=== PATIENT | female | born 1955 | race Caucasian/White ===

== ENCOUNTER → 2017-01-13 | Outpatient (CLI) | payer BC ==
--- NOTE | 2017-01-14 08:23 | XR ---
EXAMINATION TYPE: XR chest 2V DATE OF EXAM: 01/13/2017 COMPARISON: NONE TECHNIQUE: PA and lateral views submitted. HISTORY: Endometrial cancer FINDINGS: The lungs are clear and there is no pneumothorax, pleural effusion, or focal pneumonia. Hypertrophi c and degenerative change of the spine noted. IMPRESSION: 1. No acute process.
--- NOTE | 2017-01-14 10:10 | CT ---
EXAMINATION TYPE: CT abdomen pelvis w con DATE OF EXAM: 01/13/2017 COMPARISON: 02/02/2016 INDICATION: Follow-up for endometrial cancer. DLP: 709.60 mGycm, Automated exposure control for dose reduction was used. CONTRAST: 100 mL of Omnipaque 300. Study performed with Oral Contrast TECHNIQUE: Axial images were obtained from above the diaphragm to the pubic rami in the axial plane a t 5 mm thick sections. Reconstructed images are reviewed on the computer in the coronal plane. FINDINGS: Limited CT sections are obtained the lung bases. The lung bases are clear. CT ABDOMEN: Liver: Multiple scattered punctate hypodensities are present likely on the basis of small hepatic cys ts. These are too small to reliably classify as simple cysts. Monitoring can be performed. These were present previously. Spleen: Normal Pancreas: Normal Adrenal glands: The adrenal glands are normal. Gallbladder: Decompressed. Kidneys: No masses are evident. No hydronephrosis is present. No cysts are present. Delayed images were obtained through the kidneys, which remain unremarkable. Aorta: Vascular calcification is within the aorta. Inferior vena cava: Normal. CT PELVIS: Loops of bowel within the abdomen and pelvis are normal. There are loops of bowel which are incom pletely distended or lack oral contrast limiting their evaluation. Fecal debris is within the colon. A few diverticular changes are within the sigmoid colon. Appendix: Normal as visualized. Urinary bladder: Normal. Genitourinary structures: Surgically absent. Osseous structures: No suspicious lytic or sclerotic lesions. IMPRESSIONS: 1. No suspicious changes to suggest metastatic disease.
== END | disposition home or self-care (01) ==
LOC: RADCTMAIN 18:30
PROVIDERS: ATTEND Obstetrics & Gynecology
DX: C54.1 Malignant neoplasm of endometrium (principal)
CPT/HCPCS: 71020; 74177; Q9967

== ENCOUNTER → 2017-02-01 | Outpatient (CLI) | payer BC ==
--- NOTE | 2017-02-04 07:16 | MM ---
Reason for exam: screening (asymptomatic). Last mammogram was performed 1 year ago. History: Patient is postmenopausal and has history of endometrial cancer at age 60. Family history of breast cancer in mother at age 80. Physical Findings: A clinical breast exam by your physician is recommended on an annual basis and results should be correlated with mammographic findings. MG Screening Mammo w CAD Bilateral CC and MLO view(s) were taken. Prior study comparison: January 19, 2016, bilateral MG screening mammo w CAD. January 17, 2015, bilateral MG screening mammo w CAD. There are scattered fibroglandular densities. No significant changes when compared with prior studies. ASSESSMENT: Negative, BI-RAD 1 RECOMMENDATION: Routine screening mammogram of both breasts in 1 year.
== END | disposition home or self-care (01) ==
LOC: RADMAMWWP 08:10
PROVIDERS: ATTEND Family Medicine
DX: Z12.31 Encounter for screening mammogram for malignant neoplasm of breast (principal)

== ENCOUNTER → 2017-12-19 | Outpatient (CLI) | payer BC ==
--- NOTE | 2017-12-19 08:54 | XR ---
EXAMINATION TYPE: XR chest 2V DATE OF EXAM: 12/19/2017 COMPARISON: Prior chest 01/13/2017 HISTORY: Malignant neoplasm of endometrium TECHNIQUE: Frontal and lateral views of the chest are obtained. FINDINGS: There is no focal air space opacity, pleural effusion, or pneumothorax seen. The cardiac silhouette size is within normal limits. The osseous structures are intact. IMPRESSION: No acute cardiopulmonary process.
--- NOTE | 2017-12-19 09:17 | CT ---
EXAMINATION TYPE: CT abdomen pelvis w con DATE OF EXAM: 12/19/2017 HISTORY: malignant neoplasm of endometrium recently diagnosed 2014 CT DLP: 1211mGycm Automated Exposure Control for Dose Reduction was Utilized. CONTRAST: CT scan of the abdomen and pelvis is performed with oral and with IV Contrast, patient injected with 100mL of Isovue 300. COMPARISON: CT abdomen and pelvis January 13, [address] studies. FINDINGS: LUNG BASES: No significant abnormality is appreciated. LIVER/GB: Liver is diffusely low dense consistent with fatty infiltration. There is redemonstration o f scattered subcentimeter low dense lesions throughout the liver that are too small to further charac terize but presumed benign. PANCREAS: No significant abnormality is seen. SPLEEN: No significant abnormality is seen. ADRENALS: No significant abnormality is seen. KIDNEYS: No significant abnormality is seen. BOWEL: The oral contrast reaches level of the mid to distal transverse colon. There is no suspicious small or large bowel dilatation. Normal size contrast-filled appendix is seen from base of cecum. Juve e prominence of fecal material near splenic flexure is noted. UTERUS/ADNEXA: Uterus is redemonstrated surgically absent. A few scattered pelvic phleboliths are red emonstrated. LYMPH NODES: No greater than 1cm abdominal or pelvic lymph nodes are appreciated. OSSEOUS STRUCTURES: There is vacuum disc phenomenon with moderate spurring and disc space narrowing L 1-L2 and L2-L3 levels. There is mild to moderate multilevel anterior and lateral spurring throughout the visualized lower thoracic spine. OTHER: No significant additional abnormality is seen. IMPRESSION: No new mass or adenopathy is seen to suggest neoplastic recurrence.
== END | disposition home or self-care (01) ==
LOC: RADCTMAIN 06:26
PROVIDERS: ATTEND Obstetrics & Gynecology
DX: C54.1 Malignant neoplasm of endometrium (principal)
CPT/HCPCS: 71046; 74177; Q9967

== ENCOUNTER → 2018-04-20 | Outpatient (CLI) | payer BC ==
--- NOTE | 2018-04-23 10:37 | MM ---
Reason for exam: screening (asymptomatic). Last mammogram was performed 1 year and 3 months ago. History: Patient is postmenopausal and has history of endometrial cancer at age 60. Family history of breast cancer in mother at age 80. Physical Findings: A clinical breast exam by your physician is recommended on an annual basis and results should be correlated with mammographic findings. MG Screening Mammo w CAD Bilateral CC and MLO view(s) were taken. Prior study comparison: February 01, 2017, bilateral MG screening mammo w CAD. January 19, 2016, bilateral MG screening mammo w CAD. There are scattered fibroglandular densities. There is no discrete abnormality. No significant changes when compared with prior studies. ASSESSMENT: Negative, BI-RAD 1 RECOMMENDATION: Routine screening mammogram of both breasts in 1 year.
== END ==
LOC: RADMAMWWP 07:07
PROVIDERS: ATTEND Family Medicine
DX: Z12.31 Encounter for screening mammogram for malignant neoplasm of breast (principal)
CPT/HCPCS: 77067

== ENCOUNTER → 2019-04-15 | Outpatient (CLI) | payer BC ==
--- NOTE | 2019-04-16 14:09 | MM ---
Reason for exam: screening (asymptomatic). Last mammogram was performed 1 year ago. History: Patient is postmenopausal and has history of endometrial cancer at age 60. Family history of breast cancer in mother at age 80. Physical Findings: A clinical breast exam by your physician is recommended on an annual basis and results should be correlated with mammographic findings. MG Screening Mammo w CAD Bilateral CC and MLO view(s) were taken. Prior study comparison: April 20, 2018, bilateral MG screening mammo w CAD. February 01, 2017, bilateral MG screening mammo w CAD. There are scattered fibroglandular densities. No significant changes when compared with prior studies. ASSESSMENT: Benign, BI-RAD 2 RECOMMENDATION: Routine screening mammogram of both breasts in 1 year.
== END | disposition home or self-care (01) ==
LOC: RADMAMWWP 14:36
PROVIDERS: ATTEND Family Medicine
DX: Z12.31 Encounter for screening mammogram for malignant neoplasm of breast (principal)
CPT/HCPCS: 77067

== ENCOUNTER → 2019-12-31 | Outpatient (CLI) | payer BC ==
[2019-12-31 10:50] LABS: Chol/HDL Ratio 2.57; LDL Cholesterol,Calculated 83.8 mg/dL (0.0-131.0); VLDL Calculation 15.2 mg/dL (5.00-40.00)
== END | disposition home or self-care (01) ==
LOC: LABWHC1 07:06
PROVIDERS: ATTEND Family Medicine
DX: E78.00 Pure hypercholesterolemia, unspecified (principal); I10 Essential (primary) hypertension
CPT/HCPCS: 36415; 80061; 84450; 84460

== ENCOUNTER 2020-02-29 07:11 | Day surgery (SDC) | payer BC ==
[2020-02-25 09:41] VITALS: BMI 27.4
[~2020-02-29 07:11] MED LIST: LACTATED RINGERS 1,000 ML IV SCH
[2020-02-29 07:30] VITALS: RESP 16; TEMP 96.7
[2020-02-29] MEDS ORDERED: LIDOCAINE 1% (10MG/ML) FOR IV START INTRADERMA ONE (07:39)
[2020-02-29] MEDS ORDERED: PROPOFOL 10 MG/ML 20 ML VIAL IV ONE (07:55)
--- NOTE | 2020-02-29 08:02 | P.GSHP ---
History of Present Illness H&P Date: 02/29/20 Chief Complaint: colon cancer screening 65-year-old female known to our service. Patient underwent colonoscopy 5 years ago. At that time the patient was found to have a tubular adenoma in the sigmoid colon. Later that year the patient was found to have endometrial cancer and underwent surgical resection. Doing well since that time. No change in bowel habits. No family history of colon cancer. Past Medical History Past Medical History: Cancer, Hyperlipidemia, Hypertension Additional Past Medical History / Comment(s): hx of colon polyps, hx endometrial and skin CA History of Any Multi-Drug Resistant Organisms: MRSA Date of last positivie culture/infection: 2017 MDRO Source:: stomach Past Surgical History: Hysterectomy Additional Past Surgical History / Comment(s): removal of skin ca face Past Anesthesia/Blood Transfusion Reactions: No Reported Reaction Additional Past Anesthesia/Blood Transfusion Reaction / Comment(s): NO PRIOR ANESTHESIA HX Smoking Status: Never smoker - Past Family History Mother Family Medical History: No Reported History Medications and Allergies Home Medications Medication Instructions Recorded Confirmed Type Rosuvastatin Calcium [Crestor] 5 mg PO DAILY 02/25/20 02/29/20 History lisinopriL 20 mg PO QAM 02/25/20 02/29/20 History Allergies Allergy/AdvReac Type Severity Reaction Status Date / Time No Known Allergies Allergy Verified 02/29/20 07:39 Surgical - Exam Vital Signs Temp Pulse Resp BP Pulse Ox 96.7 F L 80 16 156/79 96 02/29/20 07:29 02/29/20 07:29 02/29/20 07:29 02/29/20 07:29 02/29/20 07:29 Physical exam: General: Well-developed, well-nourished HEENT: Normocephalic, sclerae nonicteric Abdomen: Nontender, nondistended Extremities: No edema Neuro: Alert and oriented Assessment and Plan (1) Colon cancer screening Narrative/Plan: Will proceed with colonoscopy at this time Current Visit: No Status: Acute Code(s): Z12.11 - ENCOUNTER FOR SCREENING FOR MALIGNANT NEOPLASM OF COLON SNOMED Code(s): 744178876
--- NOTE | 2020-02-29 08:15 | P.PCN ---
Date of Procedure: 02/29/20 Procedure(s) Performed: PREOPERATIVE DIAGNOSIS: History of colon polyp adenoma screening POSTOPERATIVE DIAGNOSIS: Normal exam PROCEDURE: Colonoscopy ANESTHESIA: MAC SURGEON: Lasha Roger M.D. SPECIMENS: None ENDOSCOPIC PROCEDURE: The patient was placed on the endoscopy table in the left decubitus position. The Olympus colonoscope was inserted into the anus and passed under direct visualization to the base of the cecum. The appendiceal orifice was visualized. From that point the scope was slowly withdrawn inspecting all surfaces carefully. There were no neoplastic inflammatory or polypoid lesions throughout the cecum, ascending, transverse, descending, sigmoid and rectum. There was no visible diverticulosis noted. The patient's prep was slightly suboptimal. Digital rectal examination was normal. The patient was taken to the recovery room in stable condition per anesthesia guidelines. RECOMMENDATIONS: Resume diet. Follow-up colonoscopy 5 years.
[2020-02-29 08:38] VITALS: BP 127/79; PULSE 66
== END 2020-02-29 09:19 | disposition home or self-care (01) ==
LOC: ORWHC2ENDO 07:11
PROVIDERS: ATTEND Surgery
DX: Z12.11 Encounter for screening for malignant neoplasm of colon (principal); Z86.010 Personal history of colon polyps; E78.5 Hyperlipidemia, unspecified; I10 Essential (primary) hypertension; Z98.890 Other specified postprocedural states; Z85.42 Personal history of malignant neoplasm of other parts of uterus; Z85.828 Personal history of other malignant neoplasm of skin; Z86.14 Personal history of Methicillin resistant Staphylococcus aureus infection; Z90.710 Acquired absence of both cervix and uterus; Z79.899 Other long term (current) drug therapy
CPT/HCPCS: G0121; J2704; 45378

== ENCOUNTER → 2020-06-15 | Outpatient (CLI) | payer BC ==
--- NOTE | 2020-06-16 14:03 | MM ---
Reason for exam: screening (asymptomatic). Last mammogram was performed 1 year and 2 months ago. History: Patient is postmenopausal and has history of endometrial cancer at age 60. Family history of breast cancer in mother at age 80. Physical Findings: A clinical breast exam by your physician is recommended on an annual basis and results should be correlated with mammographic findings. MG 3D Screening Mammo W/Cad Bilateral CC and MLO view(s) were taken. Prior study comparison: April 15, 2019, bilateral MG screening mammo w CAD. April 20, 2018, bilateral MG screening mammo w CAD. The breast tissue is almost entirely fat. There is no discrete abnormality. No significant changes when compared with prior studies. ASSESSMENT: Negative, BI-RAD 1 RECOMMENDATION: Routine screening mammogram of both breasts in 1 year.
== END | disposition home or self-care (01) ==
LOC: RADMAMWWP 06:52
PROVIDERS: ATTEND Family Medicine
DX: Z12.31 Encounter for screening mammogram for malignant neoplasm of breast (principal)
CPT/HCPCS: 77063; 77067

== ENCOUNTER → 2021-08-27 | Outpatient (CLI) | payer BC ==
--- NOTE | 2021-08-28 10:45 | MM ---
Reason for exam: screening (asymptomatic). Last mammogram was performed 1 year and 2 months ago. History: Patient is postmenopausal and has history of endometrial cancer at age 60. Family history of breast cancer in mother at age 80. Physical Findings: A clinical breast exam by your physician is recommended on an annual basis and results should be correlated with mammographic findings. MG 3D Screening Mammo W/Cad Bilateral CC and MLO view(s) were taken. Prior study comparison: June 15, 2020, bilateral MG 3d screening mammo w/cad. April 15, 2019, bilateral MG screening mammo w CAD. There are scattered fibroglandular densities. There are benign appearing round calcifications bilaterally. There is no discrete abnormality. ASSESSMENT: Benign, BI-RAD 2 RECOMMENDATION: Routine screening mammogram of both breasts in 1 year.
== END | disposition home or self-care (01) ==
LOC: RADMAMWWP 07:00
PROVIDERS: ATTEND Family Medicine
DX: Z12.31 Encounter for screening mammogram for malignant neoplasm of breast (principal); Z78.0 Asymptomatic menopausal state; Z80.3 Family history of malignant neoplasm of breast
CPT/HCPCS: 77063; 77067

== ENCOUNTER → 2022-09-11 | Outpatient (CLI) | payer MEDICARE ==
--- NOTE | 2022-09-11 09:42 | MM ---
Reason for Exam: Screening (asymptomatic). Last screening mammogram was performed 12 month(s) ago. Patient History: Menarche at age 14. First Full-Term at age 30. Left ovary removed at age 60. Right ovary removed at age 60. Hysterectomy at age 60. Postmenopausal. Endometrial cancer, age 60. Mother had breast cancer, age 80. Risk Values: Cheli 5 year model risk: 3.3%. NCI Lifetime model risk: 11.5%. Prior Study Comparison: 04/15/2019 Bilateral Screening Mammogram, [facility]. 06/15/2020 Bilateral Screening Mammogram, [facility]. 08/27/2021 Bilateral Screening Mammogram, [facility]. Tissue Density: The breast tissue is almost entirely fat. Findings: Analyzed By CAD. There is no suspicious group of microcalcifications or new suspicious mass in either breast. Overall Assessment: Negative, BI-RAD 1 Management: Screening Mammogram of both breasts in [address] [facility] will attempt to contact patient to return for supplemental views and ultrasound if indicated. Patient should continue monthly self-breast exams. A clinical breast exam by your physician is recommended on an annual basis. This exam should not preclude additional follow-up of suspicious palpable abnormalities. Note on Cheli scores and lifetime risk: 1. A Cheli score greater than 3% is considered moderate risk. If this is the case, consider specialist referral to assess eligibility for a risk reducing agent. 2. If overall lifetime risk for the development of breast cancer is 20% or higher, the patient may qualify for future screening with alternating mammogram and breast MRI. Electronically signed and approved by: Albin Nj DO
== END | disposition home or self-care (01) ==
LOC: RADMAMWWP 07:01
PROVIDERS: ATTEND Family Medicine
DX: Z12.31 Encounter for screening mammogram for malignant neoplasm of breast (principal); Z78.0 Asymptomatic menopausal state; Z80.3 Family history of malignant neoplasm of breast
CPT/HCPCS: 77063; 77067

== ENCOUNTER → 2024-01-13 | Outpatient (CLI) | payer MEDICARE ==
--- NOTE | 2024-01-13 21:37 | US ---
EXAMINATION TYPE: US thyroid st tissue head/neck DATE OF EXAM: 01/13/2024 COMPARISON: NONE CLINICAL INDICATION: Female, 68 years old with history of R59.9 ENLARGED LYMPH NODES; Dentist saw lum ps about 2 months ago left lateral neck TECHNIQUE: FINDINGS: Enlarged lymph nodes Superior = 2.3 x 1.4 x 2.1 cm Mid neck = 3.1 x 1.6 x 2.0 cm Consider etiologies for enlarged lymphadenopathy including lymphoma and metastasis. Reactive lymphade nopathy could be considered. IMPRESSION: Suspicious enlarged lymphadenopathy left neck. Additional workup with soft tissue contra st CT neck recommended. [facility], , 01/13/2024 9:35 PM
--- NOTE | 2024-01-14 14:07 | MM ---
Reason for Exam: Screening (asymptomatic). Last mammogram was performed 1 year(s) and 4 month(s) ago. Patient History: Menarche at age 14. First Full-Term at age 30. Left ovary removed at age 60. Right ovary removed at age 60. Hysterectomy at age 60. Postmenopausal. Endometrial cancer, age 60. Mother had breast cancer, age 80. Risk Values: Cheli 5 year model risk: 3.3%. NCI Lifetime model risk: 11.1%. Prior Study Comparison: 06/15/2020 Bilateral Screening Mammogram, [facility]. 08/27/2021 Bilateral Screening Mammogram, [facility]. 09/11/2022 Bilateral MG 3D screening mammo w/cad, [facility]. Tissue Density: The breasts are almost entirely fatty. Findings: Analyzed By CAD. Right breast: There is no suspicious group of microcalcifications or new suspicious mass. Left breast: There is no suspicious group of microcalcifications or new suspicious mass. Overall Assessment: Negative, BI-RAD 1 Management: Screening Mammogram of both breasts in [address] [facility] will attempt to contact patient to return for supplemental views and ultrasound if indicated. Patient should continue monthly self-breast exams. A clinical breast exam by your physician is recommended on an annual basis. This exam should not preclude additional follow-up of suspicious palpable abnormalities. Note on Cheli scores and lifetime risk: 1. A Cheli score greater than 3% is considered moderate risk. If this is the case, consider specialist referral to assess eligibility for a risk reducing agent. 2. If overall lifetime risk for the development of breast cancer is 20% or higher, the patient may qualify for future screening with alternating mammogram and breast MRI. [facility], , 01/14/2024 2:04 PM. Electronically signed and approved by: Albin Nj DO
== END | disposition home or self-care (01) ==
LOC: RADMAMWWP 16:04
PROVIDERS: ATTEND Family Medicine
DX: R59.9 Enlarged lymph nodes, unspecified
CPT/HCPCS: 76536; 77063; 77067

== ENCOUNTER → 2024-02-11 | Outpatient (CLI) | payer MEDICARE ==
[2024-02-11 14:52] LABS: African American GFR (CKD) >90 (>60 ml/min/1.73 sqM); Blood Urea Nitrogen 17 mg/dL (7-17); Non-African American GFR(CKD) 84 (>60 ml/min/1.73 sqM)
--- NOTE | 2024-02-11 19:51 | CT ---
EXAMINATION TYPE: CT soft tissue neck w con CT DLP: 320.1 mGycm, Automated exposure control for dose reduction was used. DATE OF EXAM: 02/11/2024 3:39 PM COMPARISON: None. CLINICAL INDICATION: Female, 69 years old with history of R22.1 LOCALIZED SWELLING MASS AND LUMP, swe lling to left side of neck TECHNIQUE: Standard enhanced CT of the neck. Axial sections with coronal and sagittal reformats were obtained. Contrast used:100 mL of Isovue 300 with IV Contrast, (None if empty) Oral contrast used: (None if empty) FINDINGS: Brain: Visualized portions are grossly unremarkable. Orbits: Unremarkable Sinuses: Grossly unremarkable. Spaces of the neck: Enlarged lymph nodes on the left as described below Musculoskeletal: No acute osseous pathology. Degenerative disc disease changes of the visualized spin e are present. Lymph nodes: There are 2 enlarged lymph nodes in the left neck first level 2 measuring up to 17 mm in short axis series 3 image 53 and more inferiorly level 3 measuring up to 18 mm in short axis. Small prominent lymph node in the supraclavicular region also present measuring 5 mm series 3 image 30. The larger lymph nodes demonstrate complex cystic change suggesting necrosis. Vascular structures: Visualized major arteries are patent without evidence of aneurysm. Thoracic Inlet/airway: Airway is patent. The lung apices are clear. Soft tissues/Thyroid: Thyroid and remainder of the soft tissues are unremarkable. Other: none. IMPRESSION Multiple enlarged left neck lymph nodes with cystic change concerning for neoplastic process with cys tic degeneration. [facility], , 02/11/2024 7:49 PM
== END | disposition home or self-care (01) ==
LOC: RADCTMAIN 13:42
PROVIDERS: ATTEND Family Medicine
DX: R22.1 Localized swelling, mass and lump, neck (principal)
CPT/HCPCS: 36415; 70491; 82565; 84520

== ENCOUNTER 2024-03-10 12:53 | Day surgery (SDC) | payer MEDICARE ==
[2024-03-10 13:38] VITALS: RESP 18; TEMP 98.1
[2024-03-10 15:03] VITALS: BP 140/78; PULSE 77
--- NOTE | 2024-03-10 16:04 | US ---
EXAMINATION TYPE: US biopsy lymph node, US FNA first lesion, US FNA each additional lesion DATE OF EXAM: 03/10/2024 2:58 PM COMPARISON: None CLINICAL INDICATION:Female, 69 years old with history of R59.9 ENLARGED LYMPH NODES, UNSPECIFIED; , ATTENDING: Dr. Albin Nj PROCEDURE: Informed consent was obtained. The risks and benefits of the procedure were discussed with the patien t. The site was marked. Timeout procedure was performed Ultrasound imaging demonstrates multiple hypoechoic structures in the left neck. The patient was prepped, draped in the usual sterile fashion, and locally anesthetized with 1% lidoca ine. 2 x 18-gauge core needle biopsies were obtained. Purulent fluid came out of the tract to the le chavo and it was at that time aspiration was was then performed on this lesion. Samples of both the co re biopsy and fluid were sent to the pathology department for further analysis. Patient tolerated th e procedure without incident and was sent home in stable condition. The second lesion in the neck more inferior and medial was then targeted with fine-needle aspiration. A sample was obtained and submitted for analysis. IMPRESSION: Successful ultrasound guided core biopsy of the superior lateral lesion and fine needle aspiration of both the superior lateral and inferior medial lesions. Findings could represent infected brachial cl eft cyst versus other infected cystic structure. [facility], , 03/10/2024 4:02 PM
== END 2024-03-10 15:00 | disposition home or self-care (01) ==
LOC: RADPROMAIN 12:53
PROVIDERS: ATTEND Family Medicine
DX: R59.0 Localized enlarged lymph nodes (principal)
CPT/HCPCS: 10005; 10006; 38505; 76942; 87070; 87075; 87205; 88305

== ENCOUNTER 2024-11-09 09:33 | Day surgery (SDC) | payer MEDICARE ==
[2024-11-08 10:23] VITALS: BMI 23.0
[2024-11-09] MEDS: LACTATED RINGERS 1,000 ML IV SCH (09:59)
[2024-11-09 10:03] VITALS: TEMP 96
[2024-11-09] MEDS: IV FLUID CONTINUATION 1,000 ML IV ONE (10:04)
[2024-11-09] MEDS ORDERED: PROPOFOL 10 MG/ML 20 ML VIAL IV ONE (10:24)
--- NOTE | 2024-11-09 10:28 | P.GSHP ---
History of Present Illness H&P Date: 11/09/24 Chief Complaint: Screening with history of polyps 69-year-old female here for colonoscopy. Last colonoscopy 5 years ago. Personal history of adenoma. No bowel complaints. No family history of colon cancer. Past Medical History Past Medical History: Cancer, Hyperlipidemia, Hypertension Additional Past Medical History / Comment(s): hx of colon polyps, hx endometrial Ca and skin CA under left eye, Lymph nodes and base of tongue. History of Any Multi-Drug Resistant Organisms: MRSA Date of last positivie culture/infection: 2018 MDRO Source:: stomach Past Surgical History: Hysterectomy Additional Past Surgical History / Comment(s): removal of skin ca face Past Anesthesia/Blood Transfusion Reactions: No Reported Reaction Additional Past Anesthesia/Blood Transfusion Reaction / Comment(s): NO PRIOR ANESTHESIA HX Smoking Status: Never smoker - Past Family History Mother Family Medical History: Cancer Additional Family Medical History / Comment(s): breast age 79 Medications and Allergies Home Medications Medication Instructions Recorded Confirmed Type Rosuvastatin Calcium [Crestor] 5 mg PO DAILY 02/25/20 11/09/24 History lisinopriL 20 mg PO QAM 02/25/20 11/09/24 History Ascorbic Acid [Vitamin C] 500 mg PO DAILY 03/05/24 11/09/24 History Biotin [Hsgl-Eccy-Ljyla] 10,000 mcg PO DAILY 03/05/24 11/09/24 History Magnesium Carb,Citrate,Oxide 300 mg PO DAILY 03/05/24 11/09/24 History [Magnesium Complex] Allergies Allergy/AdvReac Type Severity Reaction Status Date / Time No Known Allergies Allergy Verified 11/09/24 09:57 Surgical - Exam Vital Signs Temp Pulse Resp BP Pulse Ox 96.0 F L 87 16 137/77 99 11/09/24 10:02 11/09/24 10:02 11/09/24 10:02 11/09/24 10:02 11/09/24 10:02 Physical exam: General: Well-developed, well-nourished HEENT: Normocephalic, sclerae nonicteric Abdomen: Nontender, nondistended Extremities: No edema Neuro: Alert and oriented Assessment and Plan (1) Colon cancer screening Narrative/Plan: Will proceed with colonoscopy at this time. Current Visit: Yes Status: Acute Code(s): Z12.11 - ENCOUNTER FOR SCREENING FOR MALIGNANT NEOPLASM OF COLON SNOMED Code(s): 030108257
--- NOTE | 2024-11-09 10:39 | P.PCN ---
Date of Procedure: 11/09/24 Procedure(s) Performed: PREOPERATIVE DIAGNOSIS: History of polyps screening POSTOPERATIVE DIAGNOSIS: Ascending colon polyp x 2, diverticulosis PROCEDURE: Colonoscopy with snare polypectomy ANESTHESIA: MAC SURGEON: Lasha Roger M.D. SPECIMENS: Colon polyps ENDOSCOPIC PROCEDURE: The patient was placed on the endoscopy table in the left decubitus position. The Olympus colonoscope was inserted into the anus and passed under direct visualization to the base of the cecum. The appendiceal orifice was visualized. From that point the scope was slowly withdrawn inspecting all surfaces carefully. There were no neoplastic inflammatory or polypoid lesions throughout the cecum. In the ascending colon 2 separate polyps were seen and removed using a snare with cautery technique. Remainder of the transverse descending sigmoid and rectum was normal. There was mild left-sided diverticulosis. Digital rectal examination was normal. The patient was taken to the recovery room in stable condition per anesthesia guidelines. RECOMMENDATIONS: Await biopsy results. Repeat colonoscopy 5 years.
[2024-11-09 11:08] VITALS: BP 94/56; PULSE 73; RESP 16
== END 2024-11-09 11:34 | disposition home or self-care (01) ==
LOC: ORWHC2ENDO 09:33
PROVIDERS: ATTEND Surgery
DX: D12.2 Benign neoplasm of ascending colon (principal); K57.30 Diverticulosis of large intestine without perforation or abscess without bleeding; Z86.0100 Personal history of colon polyps, unspecified; E78.5 Hyperlipidemia, unspecified; I10 Essential (primary) hypertension; Z90.710 Acquired absence of both cervix and uterus
CPT/HCPCS: 88305; 45385; J2704